=== PATIENT | female | born 1990 | race Caucasian/White ===

== ENCOUNTER 2019-05-14 07:52 | Emergency (ER) | payer SELFPAY ==
[2019-05-14 07:57] VITALS: BP 117/81; PULSE 82; RESP 16; TEMP 36.9; O2SAT 98; BMI 22.6
--- NOTE | 2019-05-14 07:58 | ED_ITS ---
HPI - Chest Pain General: Chief Complaint: General Medical Stated Complaint: left breast pain Time Seen by Provider: 05/14/19 07:58 Source: patient Mode of arrival: ambulatory Limitations: no limitations History of Present Illness: HPI narrative: Patient is a 28-year-old female who presents to ED today with complaints of left breast pain over the past few days; patient states she is breast-feeding her 1-1/2-year-old child; she has not noticed any warmth or redness to the breast; feels like it is firm to the lateral aspect complaint: other (Left breast pain) Onset (ago): day(s) Timing of current episode: constant Prior episodes: No Onset: during rest Pain location: left chest Pain radiation: none Severity: moderate Relieving factors: nothing Exacerbating factors: palpation and movement Associated symptoms: Reports no associated symptoms; Deny fever(s), nausea, palpitations, syncope or vomiting Review of Systems Const: Denies: fever, chills, body aches or fatigue Card: Denies: palpitations, irregular heart rhythm, edema, lightheadedness, syncope, pre-syncope, shortness of breath on exertion, shortness of breath when lying down or leg pain with exertion GI: Denies: nausea or vomiting Skin/Breast: Reports: other (Left breast pain) PFS ED PFSH: Statuses (acute, chronic, etc) shown below reflect problem list status as previously entered and may not be historically accurate Social History Smoking and tobacco status: never smoked Physical Exam Const: COMMON NORMALS: no apparent distress, average body habitus, oriented x3, no limitations, healthy appearing, alert and well nourished Chest: OTHER: TTP and firmness noted to L lateral breast; no nipple discharge; no redness/warmth to overlying tissue Neuro: COMMON NORMALS: oriented x3 SENSORIUM/ORIENTATION: Yes alert Course Vital Signs: Vital signs: Vital Signs Temperature 98.4 F 05/14/19 07:57 Pulse Rate 82 05/14/19 07:57 Respiratory Rate 16 05/14/19 07:57 Blood Pressure 117/81 05/14/19 07:57 Pulse Oximetry 98 05/14/19 07:57 MDM - Chest Pain Imaging Data^: US: Radiologist's impression: [address] [address] Ultrasound Report Signed Patient: Elke Anna Unit #: [id number] : 1990 Age/Sex: 28 / F ADM Date: 05/14/19 Loc: ER Room/Bed: Attending Dr: Ordering Provider/Ordering MD: Marya Marcano Date of Service: 05/14/19 Procedure(s): US breast LT limited* [id number] Accession Number(s): [id number] Report Number: [id number] WS: [id number] ULTRASOUND LEFT BREAST HISTORY: pain/swelling, 28-year-old with history of breast-feeding and pain. COMPARISON: None available. TECHNIQUE: 2-D and Doppler. Ultrasound is directed over the LEFT breast in the area of concern. There is soft tissue thickening and some increased vascularity surrounding the soft tissues behind the nipple. The ducts are dilated and contain echogenic debris. There is a tubular elongated structure measuring 2.0 x 0.6 cm at 9:00, 2 cm from the nipple. No increased vascularity. This does appear to be inspissated material within the duct. There are several additional similar structures. FOLLOW-UP: See Report 1. Findings are consistent with mastitis and marked duct ectasia. Inspissated material within the ducts. No abscess at this time. 2. No additional follow-up is necessary unless the findings do not improve. If mastitis persists or abscess is suspected follow-up can be performed at that time. US/US breast LT limited* [id number] IMPRESSION: BI-RADS: 2-Benign Dictated By: Barbara Boyd DO Signed By: Barbara Boyd DO Signed Date/Time: 05/14/19938 DD/ 2 Discharge Plan Discharge Patient Disposition: Home, Self-Care Clinical Impression: Mastitis without abscess Condition: Stable Prescriptions: New Keflex 500 mg capsule 500 mg PO Q6H 10 Days Qty: 40 RF: 0 No Action Multiple Vitamins Tablet 1 tab PO DAILY RF: 0 Mirena 20 mcg/24 hours (5 yrs) 52 mg Intrauterine Device See Rx Instructions .ROUTE .COMPLEX RF: 0 Referrals: Irvin Washburn MD [Primary Care Provider] - Wendy Purcell DO [Family Provider] - Discharge Diet: Usual diet Discharge Activity: continue ; warm compresses to breast Activity Restrictions/Additional Instructions: You need to follow up with primary care next week for continued pain. Coding Level of Care Code ED Electrical Systems Engineer for Ahmet Cerna
--- NOTE | 2019-05-14 08:09 | US_ITS ---
WS: [id number] ULTRASOUND LEFT BREAST HISTORY: pain/swelling, 28-year-old with history of breast-feeding and pain. COMPARISON: None available. TECHNIQUE: 2-D and Doppler. Ultrasound is directed over the LEFT breast in the area of concern. There is soft tissue thickening a nd some increased vascularity surrounding the soft tissues behind the nipple. The ducts are dilated a nd contain echogenic debris. There is a tubular elongated structure measuring 2.0 x 0.6 cm at 9:00, 2 cm from the nipple. No increased vascularity. This does appear to be inspissated material within the duct. There are several additional similar structures. FOLLOW-UP: See Report 1. Findings are consistent with mastitis and marked duct ectasia. Inspissated material within the du cts. No abscess at this time. 2. No additional follow-up is necessary unless the findings do not improve. If mastitis persists or abscess is suspected follow-up can be performed at that time. US/US breast LT limited* [id number] IMPRESSION: BI-RADS: 2-Benign
--- NOTE | 2019-05-14 08:15 | PC.NURSE ---
pt c/o tenderness to left breast that worsens with palpation/movement. Breast free of abnormal markings or erythema. pt denies lump/mass.
[2019-05-14 10:00] VITALS: BP 103/78; PULSE 92; O2SAT 98
== END 2019-05-14 10:00 | disposition home or self-care (01) ==
PROVIDERS: Emergency Provider Physician Assistant; Family Provider Family Medicine; PCP Family Medicine
DX: N61.0 Mastitis without abscess (principal)
CPT/HCPCS: 76642; 99281; 99283

== ENCOUNTER → 2019-09-04 14:53 | Outpatient (BNVA) | payer OTHER, SELFPAY | PROVIDERS: Family Provider Family Medicine; PCP Family Medicine; Visit Provider Orthopaedic Surgery | DX: M94.269 Chondromalacia, unspecified knee (principal) | CPT/HCPCS: 73565 ==

== ENCOUNTER → 2020-09-09 10:06 | Outpatient (BNVA) | payer OTHER, SELFPAY | PROVIDERS: Family Provider Family Medicine; PCP Family Medicine; Visit Provider Registered Nurse Neonatal Intensive Care | DX: J02.9 Acute pharyngitis, unspecified (principal); J30.2 Other seasonal allergic rhinitis; Z68.26 Body mass index [BMI] 26.0-26.9, adult | CPT/HCPCS: 87071; 87880 ==

== ENCOUNTER 2020-11-04 09:07 | Outpatient (CLI) | payer OTHER, SELFPAY ==
--- NOTE | 2020-11-04 09:14 | MM_ITS ---
WS: [id number] BILATERAL DIGITAL SCREENING MAMMOGRAPHY WITH CAD CLINICAL INFORMATION: SCREENING;FAM HX OF BREAST CA (MOTHER) HISTORY: Screening mammogram. Left breast lump. Family history of breast cancer. COMPARISON: None. TECHNIQUE: Bilateral CC and MLO views. FINDINGS: The breasts are composed of heterogeneous fibroglandular density tissue, which can limit the detectio n of small underlying mass lesions. Punctate and clustered calcifications. A few punctate calcificati ons left breast. Palpable marker upper outer left breast. Partially obscured ovoid nodular density de ep to the palpable marker best seen on the MLO view measuring 9 mm. Recommend further evaluation with diagnostic mammography and ultrasound. Right breast is unremarkable. MM/[place] [id number] IMPRESSION: BI-RADS: 0-Incomplete: Need additional imaging evaluation FOLLOW UP: Need Additional Imaging Palpable nodule left breast. Recommend further evaluation with left diagnostic mammography and ultrasound.
== END 2020-11-04 09:08 | disposition home or self-care (01) ==
LOC: RADSHAW 09:12
PROVIDERS: Family Provider Family Medicine; PCP Nurse Practitioner; Visit Provider Nurse Practitioner
DX: Z12.31 Encounter for screening mammogram for malignant neoplasm of breast (principal)
CPT/HCPCS: 77067

== ENCOUNTER → 2020-11-05 17:56 | Outpatient (BNVA) | payer OTHER, SELFPAY | PROVIDERS: Family Provider Family Medicine; PCP Nurse Practitioner; Visit Provider Nurse Practitioner Family | DX: S99.912A Unspecified injury of left ankle, initial encounter (principal); W10.9XXA Fall (on) (from) unspecified stairs and steps, initial encounter | CPT/HCPCS: 73610 ==

== ENCOUNTER 2021-01-05 13:46 | Outpatient (CLI) | payer OTHER, SELFPAY ==
--- NOTE | 2021-01-05 14:15 | US_ITS ---
WS: [id number] LEFT DIGITAL MAMMOGRAPHY WITH CAD CLINICAL INFORMATION: ABNORMAL MAMMOGRAM COMPARISON: November 04, 2020 TECHNIQUE: 4 views of the left breast were obtained. FINDINGS: The left breast is composed of heterogeneous fibroglandular density tissue, which can limit the detec tion of small underlying mass lesions. Punctate calcifications. Dense nodular breast tissue left [address] st similar in appearance to previous. Ultrasound is pending. ULTRASOUND BREAST LEFT TECHNIQUE: Ultrasound left breast focused area of concern. CLINICAL INFORMATION: ABNORMAL MAMMOGRAM FINDINGS: Ultrasound left breast at the 1:00 position. Ovoid lobulated nodule measuring 6.0 x 5.4 x 8.6 mm. In a patient this age this most likely represents fibroadenoma but indeterminant and recommend further e valuation with ultrasound-guided biopsy. Incidental subcutaneous lymph node measuring 11 x 10 mm in the area of marker US/US breast LT limited* [id number] IMPRESSION: BI-RADS: 4-Suspicious Finding-Biopsy Should Be Considered FOLLOW UP: US Guided Biopsy Recommended RECOMMEND FURTHER EVALUATION LEFT BREAST NODULE WITH ULTRASOUND-GUIDED BIOPSY.
== END 2021-01-05 13:47 | disposition home or self-care (01) ==
PROVIDERS: PCP Nurse Practitioner; Visit Provider Nurse Practitioner
DX: R92.8 Other abnormal and inconclusive findings on diagnostic imaging of breast (principal); N63.21 Unspecified lump in the left breast, upper outer quadrant
CPT/HCPCS: 76642; 77065

== ENCOUNTER 2021-01-21 07:59 | Outpatient (CLI) | payer OTHER, SELFPAY ==
--- NOTE | 2021-01-21 08:09 | US_ITS ---
WS: [id number] ULTRASOUND-GUIDED LEFT BREAST BIOPSY CLINICAL INFORMATION: nodule left breast COMPARISON: None. FINDINGS: The procedure including risks, benefits, and complications were discussed with the patient who agreed to proceed. Using sterile technique patient was prepped and draped in the usual sterile fashion. Aft er 1% lidocaine utilizing real-time ultrasound guidance 5 14-gauge cores were obtained of the left br east lesion at the 1 o'clock position. Subsequently a titanium clip was placed in the biopsy cavity. No immediate complications. Pathology demonstrates A. Breast, left 1 o'clock, 1 cm from nipple, ultrasound-guided biopsy: -Fibroadenoma. -No malignancy identified. US/[place] [id number] IMPRESSION: 1. Uncomplicated ultrasound-guided left breast biopsy. 2. The pathology demonstrates fibroadenoma. No malignancy identified. 3. Recommend 6 month follow-up left breast ultrasound to confirm stability BI-RADS: 2-Benign FOLLOW UP: 6 Month Follow-up
== END 2021-01-21 08:00 | disposition home or self-care (01) ==
LOC: RAD 08:02
PROVIDERS: PCP Nurse Practitioner; Visit Provider Nurse Practitioner
DX: N63.21 Unspecified lump in the left breast, upper outer quadrant (principal); D24.2 Benign neoplasm of left breast
CPT/HCPCS: 19083; 88305

== ENCOUNTER 2022-03-27 15:03 | Outpatient (CLI) | payer OTHER, SELFPAY ==
--- NOTE | 2022-03-27 15:15 | USCV_ITS ---
Elke Anna Age: 31 Gender: F : 1990 Exam Date: 03/27/2022 15:29 Ordering Phys: EAMON CARBAJAL PA-C Technologist: Exam Location: [facility] [place]ication: rt leg pain swelling post rt knee surg PROCEDURES: Venous duplex imaging was performed in only the Right lower extremity. The following venous structures were evaluated: common femoral vein, profunda vein, proximal portion of the greater saphenous vein, superficial femoral vein, and the popliteal vein. In addition, the posterior tibial and peroneal trunk were evaluated. There is a large complex bakers cyst in rt popfossa CONCLUSIONS No evidence of right lower extremity DVT. Complex right popliteal cyst measuring 6.2 x 2.5 x 4.0cm Jd Zamora MD (Electronically Signed) Final Date: 27 March 2022 17:38 S
== END 2022-03-27 15:04 | disposition home or self-care (01) ==
PROVIDERS: PCP Nurse Practitioner; Visit Provider Internal Medicine
DX: M79.661 Pain in right lower leg (principal); M79.89 Other specified soft tissue disorders; M71.21 Synovial cyst of popliteal space [Baker], right knee
CPT/HCPCS: 93971

== ENCOUNTER → 2022-10-10 13:44 | Outpatient (BNVA) | payer OTHER, SELFPAY | PROVIDERS: PCP Nurse Practitioner; Referring Provider Nurse Practitioner; Visit Provider Nurse Practitioner Family | DX: L30.9 Dermatitis, unspecified (principal); L81.4 Other melanin hyperpigmentation; L57.8 Other skin changes due to chronic exposure to nonionizing radiation | CPT/HCPCS: 99204 ==

== ENCOUNTER 2022-11-21 13:32 | Emergency (ER) | payer OTHER, SELFPAY ==
[2022-11-21 13:37] VITALS: BP 122/75; PULSE 88; RESP 16; TEMP 36.7; O2SAT 96; BMI 25.8
--- NOTE | 2022-11-21 14:41 | USCV_ITS ---
Elke Anna Age: 32 Gender: F : 1990 Exam Date: 11/21/2022 15:04 Ordering Phys: Richard Trujillo DO Technologist: CT Exam Location: [facility] – [place] Indication: rt knee swelling PROCEDURES: Venous duplex imaging was performed in only the right lower extremity. The following venous structures were evaluated: common femoral vein, profunda vein, proximal portion of the greater saphenous vein, superficial femoral vein, and the popliteal vein. In addition, the posterior tibial and peroneal trunk were evaluated. On the right side, the common femoral, superficial femoral, profunda femoral, popliteal, posterior tibial, greater saphenous veins and the peroneal trunk were identified and interrogated in the standard fashion. These veins were found to be easily compressible with spontaneous blood flow. No evidence of insufficiency or thrombus noted. FINDINGS: no dvt, post sx hematoma noted in upper calf posteriorly, rt knee sx 3 weeks ago CONCLUSIONS No evidence of right lower extremity DVT. Postop hematoma upper calf posteriorly 3.2 x 2.5cm Jd Zamora MD (Electronically Signed) Final Date: 21 November 2022 16:33 S
--- NOTE | 2022-11-21 14:42 | ED_ITS ---
HPI - Extremity Problem General: Chief complaint: Extremity Injury, Lower Stated complaint: right leg pain, pt fears bloodclot Time Seen by Provider: 11/21/22 14:29 History of Present Illness: Patient noticed right calf swelling since Sunday and a bruise since Sunday. Gravities pull is resulted at the ankle. Calf is swollen and tender to palpate. Patient's approximately 6 weeks out from knee surgery. Patient's worry about a DVT. Patient is not on any type of anticoagulation and is on control pills. Review of Systems General: Reports: 10 or more systems reviewed and unremarkable except in HPI and below PFSH ED PFSH: Medical History No pertinent past medical history neghx: htn, dm,thyroid,dvt/pe PCP: marjorie leos Surgical History (~2006) surgical EAB H/O breast biopsy Left breast-- benign possible fibroadenoma H/O eye surgery (~2014) H/O knee surgery 03/2021, 05/2021, 11/2021, 02/2022, 08/2022 H/O wisdom tooth extraction Family History Mother Breast cancer dx'd around age 50 Denies family history of Colon cancer Ovarian cancer Diabetes Heart disease Hyperlipidemia Hypertension Uterine cancer Thyroid disease Stroke Physical Exam Const: COMMON NORMALS: no acute distress, average body habitus, patient oriented x3, no limitations, healthy appearing, alert and well nourished HENMT: COMMON NORMALS: normocephalic, atraumatic, hearing grossly normal bilaterally, external ears normal, Normal external nose present and moist oral mucous membranes HEAD & SCALP: normocephalic and atraumatic NOSE: Normal external nose present EXTERNAL EAR: Yes external ears normal Neck/C-Spine: COMMON NORMALS: full ROM, no lymphadenopathy, supple, no meningeal signs, no JVD and Thyroid normal THYROID: Thyroid normal Chest: COMMONS NORMALS: normal inspection of the chest and normal palpation of entire chest wall Resp: COMMON NORMALS: normal respiratory effort, No retractions, No use of accessory muscles and clear to auscultation bilaterally AUSCULTATION: clear to auscultation bilaterally Cardio: COMMON NORMALS: no JVD, regular rate, regular rhythm, S1 normal heart sound present, S2 normal heart sound present, No gallops present (Cardio), No clicks present (Cardio), No murmurs present (Cardio) and No rub (Cardio) RATE: regular rate RHYTHM: regular rhythm HEART SOUNDS: S1 normal heart sound present and S2 normal heart sound present GI: COMMON NORMALS: Normal to inspection, nondistended, normoactive bowel sounds present, Soft to palpation, non-tender, No hepatosplenomegaly present and no masses PALPATION: Yes Soft to palpation and Yes No hepatosplenomegaly present Extremity: NARRATIVE EXTREMITY EXAM: Right leg calf swollen tender to palpate bruised from upper calf down to ankle. No erythema or streaking noted. Neuro: COMMON NORMALS: patient oriented x3 SENSORIUM/ORIENTATION: Yes alert MENINGEAL SIGNS: Yes no meningeal signs Course Vital Signs: Vital signs: Vital Signs Temperature 98.1 F 11/21/22 13:37 Pulse Rate 88 11/21/22 13:37 Respiratory Rate 16 11/21/22 13:37 Blood Pressure 122/75 11/21/22 13:37 Pulse Oximetry 96 11/21/22 13:37 Oxygen Delivery Me thod Room Air 11/21/22 13:37 MDM - Extremity (Nontraumatic) Medical Decision Making Presents to the ER with bruise on right lower extremity and swelling and tenderness to palpation. Patient is postop right knee surgery. Patient had ultrasound of his right lower extremity which showed no DVT but did show a hematoma in the posterior calf region. This was discussed and explained to the patient in detail patient be discharged home. Differential Diagnosis Likely deep vein thrombosis of lower extremity; Unlikely herpes zoster, gout, cellulitis, superficial thrombophlebitis, deep venous thrombosis of upper extremity or lower extremity edema Medical Records I reviewed the patient's medical records. Lab Data I reviewed the patient's lab results. Discharge Plan Discharge Patient Disposition: Home Clinical Impression: Hematoma, Localized swelling of lower extremity Condition: Stable Prescriptions: No Action levonorgestrel-ethinyl estrad [Levora-28] 0.15-0.03 mg tablet 1 tab PO DAILY Qty: 84 0RF Multiple Vitamins Tablet 1 tab PO DAILY Discharge Orders: Discharge ED (Routine); Ordered 11/21/22 Ordered By: Richard Trujillo Referrals: Marjorie Loes FNP [Primary Care Provider] - 1 week Patient Instructions: Hematoma (ED) Activity Restrictions/Additional Instructions: Follow-up with your PCP in approximately 7 to 10 days as needed. Coding Level of Care Code ED Melting Operator for Ahmet Cerna
[2022-11-21 16:48] VITALS: BP 120/78; PULSE 90; O2SAT 98
== END 2022-11-21 16:45 | disposition home or self-care (01) ==
PROVIDERS: Emergency Provider Emergency Medicine; PCP Nurse Practitioner
DX: S80.11XA Contusion of right lower leg, initial encounter (principal); M79.89 Other specified soft tissue disorders; X58.XXXA Exposure to other specified factors, initial encounter
CPT/HCPCS: 93971; 99284

== ENCOUNTER 2023-08-08 13:12 | Emergency (ER) | payer BC, SELFPAY ==
[2023-08-08 13:28] VITALS: BP 152/80; PULSE 67; RESP 18; TEMP 36.7; O2SAT 99; BMI 28.2
--- NOTE | 2023-08-08 13:43 | ED_ITS ---
HPI - Female Genitourinary 2 General: Chief complaint: Urogenital-Female Stated complaint: cramps, frequent urination Time Seen by Provider: 08/08/23 13:43 History of Present Illness: 32-year-old female comes in today with b reast tenderness, abnormal uterine bleeding, nausea. Patient thought she might be but had a negative test at home. Labs normal menstrual cycle was 2 weeks ago. Patient reports today she started having some intermittent spotting. Patient denies any chronic medical problems but some back pain and knee pain due to prior service. Patient's history is 3 para 1. Patient takes no routine medications. Patient reports that her and her are trying to get . Review of Systems 2 General: Reports: 10 or more systems reviewed and unremarkable except in HPI and below : Reports: vaginal bleeding PFSH ED 2 PFSH: Medical History No pertinent past medical history neghx: htn, dm,thyroid,dvt/pe PCP: marjorie leos Surgical History (~2006) surgical EAB H/O breast biopsy Left breast-- benign possible fibroadenoma H/O eye surgery (~2014) H/O knee surgery 03/2021, 05/2021, 11/2021, 02/2022, 08/2022 H/O wisdom tooth extraction Family History Mother Breast cancer dx'd around age 50 Denies family history of Colon cancer Ovarian cancer Diabetes Heart disease Hyperlipidemia Hypertension Uterine cancer Thyroid disease Stroke Physical Exam 2 Const: COMMON NORMALS: alert HENMT: COMMON NORMALS: normocephalic HEAD & SCALP: normocephalic Neck/C-Spine: COMMON NORMALS: full ROM Chest: COMMONS NORMALS: normal inspection of the chest Resp: COMMON NORMALS: normal respiratory effort and clear to auscultation bilaterally AUSCULTATION: clear to auscultation bilaterally Cardio: COMMON NORMALS: regular rate RATE: regular rate GI: COMMON NORMALS: Soft to palpation PALPATION: Yes Soft to palpation Back/Pelvis: COMMON NORMALS: thoracic and lumbar spine normal to inspection Extremity: COMMON NORMALS: full ROM Neuro: SENSORIUM/ORIENTATION: Yes alert Psych: COMMON NORMALS: cooperative Skin: COMMON NORMALS: turgor normal GENERAL SKIN EXAM: turgor normal Course 2 Vital Signs: Vital signs: Vital Signs Temperature 98.0 F 08/08/23 13:28 Pulse Rate 67 08/08/23 13:28 Respiratory Rate 18 08/08/23 13:28 Blood Pressure 117/67 08/08/23 14:34 Pulse Oximetry 99 08/08/23 13:28 Oxygen Delivery Me thod Room Air 08/08/23 13:28 MDM - Female Medical Decision Making Patient comes in with pelvic fullness and some breast tenderness and abnormal uterine bleeding. On exam patient has some tenderness in the lower suprapubic abdomen. Vital signs are normal except for some mild elevation of blood pressure. Skin is warm and dry. Differential diagnosis includes , ovarian cyst, UTI, vaginitis. Urinalysis was unremarkable. CBC CMP were unremarkable. hCG was negative. Ultrasound of the pelvis noted a left ovarian cyst with good blood flow to the ovary. Reviewed exam with patient with recommendations for treatment and follow-up with WIRE ROPE SALES REPRESENTATIVE for ovarian cyst. Patient reported understanding and agreed to plan. Lab Data 08/08/23 13:48 08/08/23 13:48 Laboratory Results WBC 6.62 10^3/uL (3.29-11.43) 08/08/23 13:48 RBC 4.37 10^6/uL (3.85-5.65) 08/08/23 13:48 Hgb 13.30 g/dL (11.27-16.99) 08/08/23 13:48 Hct 39.0 % (36-47) 08/08/23 13:48 MCV 89.2 fl (85-98) 08/08/23 13:48 MCH 30.4 pg (27-33) 08/08/23 13:48 MCHC 34.1 g/dL (30-55) 08/08/23 13:48 RDW 11.8 % (12.1-15.1) L 08/08/23 13:48 Plt Count 247 10^3/cmm (157-399) 08/08/23 13:48 MPV 10.1 fL (7.4-10.4) 08/08/23 13:48 Neut % (Auto) 72.8 % 08/08/23 13:48 Lymph % (Auto) 18.9 % 08/08/23 13:48 [place] % (Auto) 5.9 % 08/08/23 13:48 Eos % (Auto) 1.7 % 08/08/23 13:48 Baso % (Auto) 0.5 % 08/08/23 13:48 Neut # (Auto) 4.83 10^3/uL (1.8-7.7) 08/08/23 13:48 Lymph # (Auto) 1.3 10^3/uL (0.8-4.8) 08/08/23 13:48 [place] # (Auto) 0.4 10^3/uL (0.2-0.9) 08/08/23 13:48 Eos # (Auto) 0.1 10^3/uL (0.0-0.8) 08/08/23 13:48 Baso # (Auto) 0.0 10^3/uL (0.0-0.1) 08/08/23 13:48 Nucleated RBC % (auto) 0 % 08/08/23 13:48 Nucleated RBCs # 0.0 /100WBC 08/08/23 13:48 Sodium 136 mmol/L (136-145) 08/08/23 13:48 Potassium 3.6 mmol/L (3.5-5.1) 08/08/23 13:48 Chloride 103 mmol/L (98-107) 08/08/23 13:48 Carbon Dioxide 22 mmol/L (22-29) 08/08/23 13:48 Anion Gap 14.6 (5-19) 08/08/23 13:48 BUN 8 mg/dL (6-20) 08/08/23 13:48 Creatinine 0.6 mg/dL (0.5-0.9) 08/08/23 13:48 GFR Calculation 115.1 mL/min (90-130) 08/08/23 13:48 Glucose 134 mg/dL (65-115) H 08/08/23 13:48 Calculated Osmolality 282 mOsm/kg (285-295) L 08/08/23 13:48 Calcium 9.3 mg/dL (8.5-10.5) 08/08/23 13:48 Total Bilirubin 0.3 mg/dL (0.15-1.2) 08/08/23 13:48 AST 23 U/L (0-32) 08/08/23 13:48 ALT 41 U/L (0-33) H 08/08/23 13:48 Alkaline Phosphatase 98 U/L (35-105) 08/08/23 13:48 Total Protein 7.4 g/dL (6.6-8.7) 08/08/23 13:48 Albumin 4.1 g/dL (3.5-5.2) 08/08/23 13:48 Globulin 3.3 g/dL (1.3-4.6) 08/08/23 13:48 Lipase 39 U/L (13-60) 08/08/23 13:48 HCG, Qual Negative (Negative) 08/08/23 13:48 Urine Color Yellow (Yellow) 08/08/23 13:49 Urine Appearance Sl hazy (CLEAR) A 08/08/23 13:49 Urine pH 5 (5-7) 08/08/23 13:49 Ur Specific [place] 1.020 (1.005-1.030) 08/08/23 13:49 Urine Protein Neg (Negative) 08/08/23 13:49 Urine Glucose (UA) Norm (Normal) 08/08/23 13:49 Urine Ketones Negative (Negative) 08/08/23 13:49 Urine Blood 3+ (Negative) H 08/08/23 13:49 Urine Nitrate Negative (Negative) 08/08/23 13:49 Urine Bilirubin Neg (Negative) 08/08/23 13:49 Urine Urobilinogen Norm mg/dL (Negative) 08/08/23 13:49 Ur Leukocyte Esterase Negative (Negative) 08/08/23 13:49 Urine RBC 10-15 /hpf (0-2) H 08/08/23 13:49 Urine WBC 0-4 /hpf (0-5) H 08/08/23 13:49 Ur Squamous Epith Cells 5-10 /hpf (0-5) H 08/08/23 13:49 Amorphous Sediment Not Reportable 08/08/23 13:49 Urine Bacteria 1+ /hpf (NONE) H 08/08/23 13:49 Urine Mucus Trace /hpf 08/08/23 13:49 XR interpretation done by ED provider, pending radiology final review Discharge Plan Discharge Patient Disposition: Home Clinical Impression: Ovarian cyst Qualifiers: Laterality: left Qualified Code(s): N83.202 - Unspecified ovarian cyst, left side Condition: Stable Prescriptions: No Action 28 mg iron- 800 mcg Tablet 1 tab PO DAILY Discharge Orders: Discharge ED (Routine); Ordered 08/08/23 Ordered By: Tyrone Ware Referrals: Marjorie Leos, CHIMNEY MECHANIC [Primary Care Provider] - Discharge Diet: Usual diet Discharge Activity: Increase activity as tolerated Patient Instructions: Ovarian Cyst (ED) Activity Restrictions/Additional Instructions: Home and rest. Drink plenty water and fluids. Use acetaminophen or ibuprofen for pain. Follow-up with primary care or WIRE ROPE SALES REPRESENTATIVE for further evaluation of cyst. Return to ER for new concerns. Coding Level of Care Code ED Tactical Debriefer Officer for Ahmet Cerna
[2023-08-08 14:00] LABS: Basophils % 0.5 %; Eosinophils # 0.1 10^3/uL (0.0-0.8); Eosinophils % 1.7 %; Lymphocytes # 1.3 10^3/uL (0.8-4.8); Lymphocytes % 18.9 %; Mean Corpuscular HGB Conc 34.1 g/dL (30-55); Mean Corpuscular Hemoglobin 30.4 pg (27-33); Mean Corpuscular Volume 89.2 fl (85-98); Mean Platelet Volume 10.1 fL (7.4-10.4); Monocytes # 0.4 10^3/uL (0.2-0.9); Monocytes % 5.9 %; Neutrophils # 4.83 10^3/uL (1.8-7.7); Neutrophils % 72.8 %; Nucleated Red Blood Cells % 0 %; Platelet Count 247 10^3/cmm (157-399); Red Blood Count 4.37 10^6/uL (3.85-5.65); Red Cell Distribution Width 11.8 % (12.1-15.1); White Blood Count 6.62 10^3/uL (3.29-11.43)
[2023-08-08 14:14] LABS: Alanine Aminotransferase 41 U/L (0-33); Albumin Level 4.1 g/dL (3.5-5.2); Alkaline Phosphatase 98 U/L (35-105); Anion Gap 14.6 (5-19); Aspartate Amino Transferase 23 U/L (0-32); Blood Urea Nitrogen 8 mg/dL (6-20); Calcium 9.3 mg/dL (8.5-10.5); Carbon Dioxide 22 mmol/L (22-29); Chloride 103 mmol/L (98-107); Creatinine Clr Calc Pharmacy 141.7548; Globulin 3.3 g/dL (1.3-4.6); Glomerular Filtration Rate 115.1 mL/min (90-130); Glucose 134 mg/dL (65-115); Lipase 39 U/L (13-60); Osmolality Calculated 282 mOsm/kg (285-295); Potassium 3.6 mmol/L (3.5-5.1); Sodium 136 mmol/L (136-145); Total Bilirubin 0.3 mg/dL (0.15-1.2); Total Protein 7.4 g/dL (6.6-8.7)
[2023-08-08 14:18] LABS: HCG, Serum Qual Negative (Negative)
--- NOTE | 2023-08-08 14:19 | US_ITS ---
WS: [id number] US transvaginal [id number] HISTORY: pelvic pain, abnormal bleeding COMPARISON: 09/20/2018 Uterus: 7.7 cm x 4.9 cm x 4.1 cm. Normal size retroverted uterus. No fibroid or mass identified. Endometrium: 0.5 cm. Normal. Right ovary: 3.4 cm x 2.5 cm x 1.6 cm. Normal size and vascularity, no cystic or solid masses. Left ovary: 4.9 cm x 4.4 cm x 4.1 cm. Mildly enlarged ovary. There is a simple cyst measuring 3.4 x 3 .4 x 3.5 cm associated with the ovary. No solid mass. The adjacent ovary has normal vascularity. No free fluid in the cul-de-sac. IMPRESSION: 1. Normal endometrium. 2. Simple LEFT ovarian cyst, 3.4 x 3.4 x 3.5 cm.
[2023-08-08 14:34] VITALS: BP 117/67
[2023-08-08 14:39] LABS: Add Urine Microscopic? YES; Bilirubin Urine Neg (Negative); Blood Urine 3+ (Negative); Glucose Urine UA Norm (Normal); Ketones Urine Negative (Negative); Leukocyte Esterase Urine Negative (Negative); Nitrate Urine Negative (Negative); Protein Urine Neg (Negative); Urine Appearance SL Hazy (CLEAR); Urine Color Yellow (Yellow); Urobilinogen Urine Norm (Negative); pH Urine 5 (5-7)
[2023-08-08 14:40] LABS: Bacteria Urine 1+ /hpf; Mucus Urine TRACE /hpf; WBC Urine 0-4 /hpf (0-5)
[2023-08-08 14:41] LABS: Add Urine Culture? Yes
--- NOTE | 2023-08-08 15:07 | PC.NURSE ---
pt in ultrasound
[2023-08-08 15:46] VITALS: BP 114/73; PULSE 72; RESP 16; O2SAT 96
== END 2023-08-08 15:47 | disposition home or self-care (01) ==
PROVIDERS: Emergency Medicine; Emergency Provider Nurse Practitioner Family; PCP Nurse Practitioner
DX: N83.202 Unspecified ovarian cyst, left side (principal)
CPT/HCPCS: 76830; 80053; 81001; 83690; 84703; 85025; 87086; 99284

== ENCOUNTER 2024-07-22 12:32 | Inpatient (IN) | payer BC, SELFPAY ==
[2024-07-22] VITALS (37 sets, daily range): BP systolic 113–138; BP diastolic 54–94; PULSE 65–82; RESP 14–18; TEMP 36.6–36.8; O2SAT 96–98; BMI 33.2
[2024-07-22 12:32] LABS: Basophils % 0.3 %; Eosinophils # 0.2 10^3/uL (0.0-0.8); Eosinophils % 1.6 %; Hematocrit 38.8 % (36-47); Lymphocytes % 10.1 %; Mean Corpuscular HGB Conc 34.3 g/dL (30-55); Mean Corpuscular Hemoglobin 30.3 pg (27-33); Mean Corpuscular Volume 88.4 fl (85-98); Monocytes # 0.7 10^3/uL (0.2-0.9); Monocytes % 7.2 %; Neutrophils # 8.21 10^3/uL (1.8-7.7); Neutrophils % 80.2 %; Nucleated Red Blood Cells % 0 %; Platelet Count 205 10^3/cmm (157-399); Red Blood Count 4.39 10^6/uL (3.85-5.65); Red Cell Distribution Width 13.3 % (12.1-15.1); White Blood Count 10.23 10^3/uL (3.29-11.43)
[2024-07-22] MEDS: sodium chloride 0.9% 1,000 ML 999 ML IV (12:35)
[2024-07-22] MEDS: ROPivacaine syringe 100 MG/50 ML SYRINGE 10 MG EPIDURAL (13:21)
--- NOTE | 2024-07-22 13:27 | ANES.PREANE2 ---
Pre-Anesthetic Assessment Height/Weight: Height 5 ft 6 in Pulse BP Pulse Ox 68 113/64 98 07/22/24 13:25 07/22/24 13:25 07/22/24 13:23 Preop Diagnosis: IUP Was Beta Baljit taken within 24 hours: N/A Was Clonidine taken within 24 hours: N/A Social No alcohol and No tobacco Exam alert, oriented x 3, clear to auscultation bilaterally and regular rate & rhythm Airway Submandibular: within normal limits Cervical ROM: within normal limits Mallampati: Class II Dentition: full Anesthetic Plan ASA status: 2 Anesthesia: Regional (specify below) Other: G2, P1 here for active labor No issues during Denies any pulmonary or cardiac issues Labs reviewed and acceptable for procedure Patient consents for epidural at this time Medications/Allergies Home Medications ?Medication ?Instructions ?Recorded ?Confirmed ?Last Taken ?Type vit no.95-ferrous 1 tab PO DAILY 08/08/23 08/08/23 Unknown History fumarate 28 mg-folic acid 800 mcg tablet () Allergies Allergy/AdvReac Type Severity Reaction Status Date / Time Penicillins Allergy ADR-Diarrhe Verified 08/08/23 13:31 a hydrocodone AdvReac Mild ADR-Dizzine Verified 08/08/23 13:31 ss oxycodone AdvReac Mild ADR-Dizzine Verified 08/08/23 13:31 ss Current Medications Generic Name Dose Route Start Last Admin Trade Name Freq PRN Reason Stop Dose Admin Sodium Chloride 1,000 mls @ 999 mls/hr 07/22/24 12:20 07/22/24 12:35 Sodium Chloride 0.9% IV 999 mls/hr .Q1H1M PRN Administration Per L&D Rescitation Protocol Ropivacaine 100 mg in 50 mls @ 10 mls/hr 07/22/24 12:30 07/22/24 13:21 Naropin Syringe EPIDURAL 10 mls/hr .Q5H SHAWN Administration PFSH Anesthesia Medical History No pertinent past medical history neghx: htn, dm,thyroid,dvt/pe PCP: [facility] Surgical History (~2006) surgical EAB H/O breast biopsy Left breast-- benign possible fibroadenoma H/O eye surgery (~2014) H/O knee surgery 03/2021, 05/2021, 11/2021, 02/2022, 08/2022 H/O wisdom tooth extraction Family History Mother Breast cancer dx'd around age 50 Denies family history of Colon cancer Ovarian cancer Diabetes Heart disease Hyperlipidemia Hypertension Uterine cancer Thyroid disease Stroke Data Anesthesia 07/22/24 12:20 Short CBC 07/22/24 Range/Units 12:20 WBC 10.23 (3.29-11.43) 10^3/uL Hgb 13.30 (11.27-16.99) g/dL Hct 38.8 (36-47) % MCV 88.4 (85-98) fl Plt Count 205 (157-399) 10^3/cmm Neut % (Auto) 80.2 % Neut # (Auto) 8.21 H (1.8-7.7) 10^3/uL Blood Bank 07/22/24 12:20 Blood Type A Positive Rho(D) Type Rh positive Antibody Screen Negative Cardiac Studies: No Data to Display
--- NOTE | 2024-07-22 13:28 | P.ANES_ITS ---
Anesthesia Procedures Procedure/Date: 07/22/24 Epidural: Time Out Performed: Yes Consents Signed: Procedure Consent Consent: requested by attending/covering physician and from patient Lumbar Level: L3-L4 Epidural position: sitting Epidural procedure: sterile prep of area, 1% lidocaine to numb the area, 18 g needle, negative for paresthesia p assed, neg for paresthesia, test dose given, 1.5% xylocaine 1:200k epi, 0.2% Ropivacaine bolus ml, placed PCEA, no systemic response, sterile dressing applied and L.U.D. no apparent complications Additional Comments: CSE performed. Following [id number] a 27-gauge spinal needle was introduced to the intrathecal space. 1 cc of 0.25% bupivacaine was injected into the intrathecal space. Following this, epidural catheter was threaded into the epidural space. Ropivacaine 0.2% was set at 10 mL/h
[2024-07-22] MEDS: dextrose 5%-lactated ringers 1,000 ML 125 ML IV (13:30)
[2024-07-22] MEDS: lactated ringers 1,000 ML 999 ML IV (13:44)
[2024-07-22] MEDS: oxytocin 30 UNIT/500 ML BAG 600 UNIT IV (14:24)
[2024-07-22] MEDS: benzocaine-menthol 78 gm Canister 1 SPRAY TOPICAL (16:51)
--- NOTE | 2024-07-22 17:10 | P.HP_ITS ---
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 The patient started teddy soon after her OB visit earlier today. Patient had progressed from 3 cm to 5 cm. Patient has had no complications during . BX was negative. Present Details : 4 Para: 1 Labs Rubella: Immune RPR: Negative GBS: Negative Review of Systems 2 General: Reports: 10 or more systems reviewed and unremarkable except in HPI and below Medications/Allergies Home Medications ?Medication ?Instructions ?Recorded ?Confirmed ?Last Taken ?Type vit no.95-ferrous 1 tab PO DAILY 08/08/2302/20 Unknown History fumarate 28 mg-folic acid 800 mcg tablet () Allergies Allergy/AdvReac Type Severity Reaction Status Date / Time Penicillins Allergy ADR-Diarrhe Verified 08/08/23 13:31 a hydrocodone AdvReac Mild ADR-Dizzine Verified 08/08/23 13:31 ss oxycodone AdvReac Mild ADR-Dizzine Verified 08/08/23 13:31 ss 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: Medical History No pertinent past medical history neghx: htn, dm,thyroid,dvt/pe PCP: bre [facility] Surgical History (~2006) surgical EAB H/O breast biopsy Left breast-- benign possible fibroadenoma H/O eye surgery (~2014) H/O knee surgery 03/2021, 05/2021, 11/2021, 02/2022, 08/2022 H/O wisdom tooth extraction Family History Mother Breast cancer dx'd around age 50 Denies family history of Colon cancer Ovarian cancer Diabetes Heart disease Hyperlipidemia Hypertension Uterine cancer Thyroid disease Stroke History History History 2 2 Term 1 0 Miscarriages/Ectopic 1 Living Children 1 Vitals/I&O/Wt Last Vital Signs Pulse 73 07/22/24 16:40 Resp 15 07/22/24 16:38 BP 121/66 07/22/24 16:40 Pulse Ox 97 07/22/24 14:08 O2 Del Method Room Air 07/22/24 12:05 07/22/24 07/22/24 07/22/24 06:59 14:59 22:59 Intake Total 330 / 330 Output Total 250 / 250 Balance 80 / 80 Weight last 48 hrs Weight 93.44 kg Physical Exam 2 Const: COMMON NORMALS: average body habitus and patient oriented x3 Resp: COMMON NORMALS: normal respiratory effort and No retractions Cardio: COMMON NORMALS: no JVD, regular rate and regular rhythm Extremity: COMMON NORMALS: no clubbing, cyanosis or edema Neuro: COMMON NORMALS: moves all extremities, no focal motor deficits and no sensory deficits noted Psych: COMMON NORMALS: mental status grossly normal and cooperative Skin: COMMON NORMALS: no rashes or lesions noted Urinary Catheter Management: Cortez: Cath Placed During This Visit: yes, but has since been removed by the nurse Reason for Continuing Indwelling Catheter: Decision to DC Catheter Urinary Catheter Date of Insertion: 07/22/24 Urinary Catheter Time of Insertion: 13:55 Date Urinary Catheter Removed: 07/22/24 Time Urinary Catheter Discontinued: 14:10 Data 07/22/24 12:20 Results Labs OB ([facility]): 2 Blood Type A Positive 07/22/24 Antibody Screen Negative 07/22/24 Hct 38.8 % (36-47) 07/22/24 Hgb 13.30 g/dL (11.27-16.99) 07/22/24 Rho(D) Type Rh positive 07/22/24 Plt Count 205 10^3/cmm (157-399) 07/22/24 HCG, Qual Negative (Negative) 08/08/23 Micro Urine Specimen 08/08/23 A&P Assessment and plan (1) Term : The patient has progressed since exam earlier so patient will be admitted for labor. Proceed with routine labor management. (2) Request for sterilization: The patient desires tubal ligation. The patient had been consented prior to 30 days before delivery. We will consult women's health for tubal PDMP PDMP Reviewed: Not Reviewed Attestations 2 Medical Necessity Statement*: Patient admitted for labor. Anticipate 2 midnight stay. Coding Level of Care Code Acute Code for Chg Fwd Diagnoses Term Z34.90 Request for sterilization Z30.2
--- NOTE | 2024-07-22 17:17 | PM.DELIVERY ---
Delivery Note: Date of delivery: July 22, 2024 Pre-delivery diagnoses: Term intrauterine Post-delivery diagnoses: Same, viable infant male Procedure: Spontaneous vaginal delivery Delivering Physician: Dr. Alon Peterson Estimated blood loss (mL): 300 Pre-Delivery Course: Patient presented at 39 weeks in active labor. The patient had progressed to completion as expected. Delivery: Once patient was completely dilated she was placed into the normal lithotomy position. The patient started pushing with contractions. After several rounds of pushing 's head was delivered without difficulty followed by infant shoulders and body. Nuchal cord x 1 was noted. Infant was placed on mother's abdomen and after delay the cord was clamped and cut. Placenta was delivered soon after. Review of the perineum showed a second-degree perineal tear that extended up the introitus and labrum. This was repaired with a combination of 2-0 Vicryl and 2-0 chromic. Continued procedure the patient's bleeding was controlled. Post-Delivery Status: Stable History History History 2 Term 1 0 Miscarriages/Ectopic 1 Living Children 1 A&P Assessment and plan (1) Spontaneous vaginal delivery: Proceed with routine care. Consult for tubal ordered. PDMP PDMP Reviewed: Not Reviewed Coding Level of Care Code Acute Code for Chg Fwd Diagnoses Spontaneous vaginal delivery O80
[2024-07-22] MEDS: docusate sodium 100 mg Capsule PO (20:00)
[2024-07-22] MEDS: ibuprofen 800 mg tablet PO (20:00)
[2024-07-23 00:20] VITALS: BP 117/71; PULSE 70; RESP 16; TEMP 36.8
[2024-07-23 02:24] LABS: Hematocrit 34.7 % (36-47); Mean Corpuscular HGB Conc 33.7 g/dL (30-55); Mean Corpuscular Hemoglobin 30.1 pg (27-33); Mean Corpuscular Volume 89.2 fl (85-98); Mean Platelet Volume 10.9 fL (7.4-10.4); Platelet Count 183 10^3/cmm (157-399); Red Blood Count 3.89 10^6/uL (3.85-5.65); Red Cell Distribution Width 13.4 % (12.1-15.1); White Blood Count 10.91 10^3/uL (3.29-11.43)
[2024-07-23 06:22] VITALS: BP 119/71; PULSE 76; RESP 16; TEMP 37.1; O2SAT 97
[2024-07-23] MEDS: ibuprofen 800 mg tablet PO (08:00)
[2024-07-23] MEDS: docusate sodium 100 mg Capsule PO (08:00)
[2024-07-23] MEDS: PRENATAL VIT NO.130/IRON/FOLIC 1 EACH TABLET PO (08:00)
--- NOTE | 2024-07-23 08:26 | ANE.PACU2 ---
Inpatient post-anesthesia follow up: Airway intact: Yes Vital signs: Temperature 98.0 F Pulse Rate 78 Respiratory Rate 16 Blood Pressure 118/84 Pulse Oximetry 99 Oxygen Delivery Me thod Room Air Oxygen Flow Rate Fraction of Inspir ed Oxygen Hydration adequate: Yes Nausea and vomiting: No Pain level: 1 Mental status: Baseline Epidural Start/End: Epidural Start Date: 07/22/24 Epidural Start Time: 13:12 Epidural End Date: 07/22/24 Epidural End Time: 15:20
[2024-07-23 10:00] VITALS: BP 119/73; PULSE 76; RESP 16; TEMP 36.7; O2SAT 98
[2024-07-23] MEDS: acetaminophen 325 mg Tablet 650 MG PO (12:10)
--- NOTE | 2024-07-23 12:51 | P.DS_ITS ---
Discharge Providers SPORTS CARTOONIST Date of Admission: 07/22/24 12:32 Date of Discharge: 07/23/24 Attending Provider at Admission: Alon Peterson MD Attending Provider at Discharge: Alon Peterson MD Primary Care Provider: KATALINA Monte Diagnoses at Discharge Discharge Diagnosis (1) Spontaneous vaginal delivery: Status: Acute Reason for Visit Reason for Visit: Poss. SROM Hospital Course Hospital Course This is a 33-year-old G4, P2 that presented at 39 weeks with active labor. Patient had progressed to completion and delivered a viable infant male vaginally without any difficulty. Patient had no complications. Information Peripartum Data: Infant Delivery Method: Vaginal Laceration description: Perineal - 2nd Degree Episiotomy description: None complications: none Physical Exam Const: COMMON NORMALS: average body habitus and patient oriented x3 Neck/C-Spine: COMMON NORMALS: no JVD Resp: COMMON NORMALS: normal respiratory effort and No retractions Cardio: COMMON NORMALS: no JVD, regular rate and regular rhythm RATE: regular rate RHYTHM: regular rhythm GI: OTHER: Uterus firm and below umbilicus Extremity: COMMON NORMALS: no clubbing, cyanosis or edema Neuro: COMMON NORMALS: patient oriented x3, moves all extremities, no focal motor deficits and no sensory deficits noted Psych: COMMON NORMALS: mental status grossly normal and cooperative Skin: COMMON NORMALS: no rashes or lesions noted GENERAL SKIN EXAM: no rashes or lesions noted Urinary Catheter Management: Cortez: Cath Placed During This Visit: yes, but has since been removed by the nurse Reason for Continuing Indwelling Catheter: Decision to DC Catheter Urinary Catheter Date of Insertion: 07/22/24 Urinary Catheter Time of Insertion: 13:55 Date Urinary Catheter Removed: 07/22/24 Time Urinary Catheter Discontinued: 14:10 History History History 2 Term 1 0 Miscarriages/Ectopic 1 Living Children 1 Discharge Data Studies Completed and Pending Laboratory Results WBC 10.91 10^3/uL (3.29-11.43) 07/23/24 02:11 RBC 3.89 10^6/uL (3.85-5.65) 07/23/24 02:11 Hgb 11.70 g/dL (11.27-16.99) 07/23/24 02:11 Hct 34.7 % (36-47) L 07/23/24 02:11 MCV 89.2 fl (85-98) 07/23/24 02:11 MCH 30.1 pg (27-33) 07/23/24 02:11 MCHC 33.7 g/dL (30-55) 07/23/24 02:11 RDW 13.4 % (12.1-15.1) 07/23/24 02:11 Plt Count 183 10^3/cmm (157-399) 07/23/24 02:11 MPV 10.9 fL (7.4-10.4) H 07/23/24 02:11 Neut % (Auto) 80.2 % 07/22/24 12:20 Lymph % (Auto) 10.1 % 07/22/24 12:20 [place] % (Auto) 7.2 % 07/22/24 12:20 Eos % (Auto) 1.6 % 07/22/24 12:20 Baso % (Auto) 0.3 % 07/22/24 12:20 Neut # (Auto) 8.21 10^3/uL (1.8-7.7) H 07/22/24 12:20 Lymph # (Auto) 1.0 10^3/uL (0.8-4.8) 07/22/24 12:20 [place] # (Auto) 0.7 10^3/uL (0.2-0.9) 07/22/24 12:20 Eos # (Auto) 0.2 10^3/uL (0.0-0.8) 07/22/24 12:20 Baso # (Auto) 0.0 10^3/uL (0.0-0.1) 07/22/24 12:20 Nucleated RBC % (auto) 0 % 07/22/24 12:20 Nucleated RBCs # 0.0 /100WBC 07/22/24 12:20 Blood Type A Positive 07/22/24 12:20 Rho(D) Type Rh positive 07/22/24 12:20 Antibody Screen Negative 07/22/24 12:20 Vitals Last Vital Signs Temp 98.1 F 07/23/24 10:00 Pulse 76 07/23/24 10:00 Resp 16 07/23/24 10:00 BP 119/73 07/23/24 10:00 Pulse Ox 98 07/23/24 10:00 O2 Del Method Room Air 07/23/24 10:00 Results Labs OB ([facility]): Blood Type A Positive 07/22/24 Antibody Screen Negative 07/22/24 Hct 34.7 % (36-47) L 07/23/24 Hgb 11.70 g/dL (11.27-16.99) 07/23/24 Rho(D) Type Rh positive 07/22/24 Plt Count 183 10^3/cmm (157-399) 07/23/24 HCG, Qual Negative (Negative) 08/08/23 Micro Urine Specimen 08/08/23 Discharge Plan Discharge Patient Disposition: Home Condition: Stable Prescriptions: Continued PNV cmb#95-ferrous fumarate-FA [] 28 mg iron- 800 mcg Tablet 1 tab PO DAILY Discharge Orders: Discharge Order (Routine); Ordered 07/23/24 Ordered By: Alon Peterson Referrals: Alon Peterson MD [Physician] - 6 Weeks Yasir Farnsworth MD [Physician] - 6 Weeks (Tubal ligation consult) Discharge Diet: Usual diet Discharge Activity: Limit activity as instructed Patient Instructions: Depression (DC), Bleeding (DC), Preeclampsia and Eclampsia After Delivery (GEN), Hemorrhage (DC), OB Discharge Report, OB Food/Drug Interaction Guide, OB Care at Home, Opioid Safety, OB Vaginal Deliveries Discharge Attestations SPORTS CARTOONIST Time Spent in Discharge Care*: less than 30 min Coding Level of Care Code Acute Code for Chg Fwd Diagnoses Spontaneous vaginal delivery O80
[2024-07-23 16:00] VITALS: BP 118/70; PULSE 78; RESP 16; TEMP 36.7; O2SAT 98
[2024-07-23 17:15] VITALS: BP 118/84; PULSE 78; RESP 16; TEMP 36.7; O2SAT 99
== END 2024-07-23 17:16 | disposition home or self-care (01) | DRG 807 ==
LOC: OPOB 12:32 → OBGYN 12:32
PROVIDERS: Admitting Provider Family Medicine; PCP Nurse Practitioner; Visit Provider Family Medicine
DX: O69.81X0 Labor and delivery complicated by cord around neck, without compression, not applicable or unspecified (principal); Z37.0 Single live birth; O70.1 Second degree perineal laceration during delivery; Z3A.39 39 weeks gestation of pregnancy
CPT/HCPCS: 36415; 51702; 59025; 59409; 83986; 85025; 85027; 86850; 86900; 99211; J1100; J2590; J2795; J3490; J7030; J7120; J7121; J9999

== ENCOUNTER 2024-10-07 06:56 | Day surgery (SDC) | payer BC, SELFPAY ==
[2024-10-07] VITALS (10 sets, daily range): BP systolic 93–118; BP diastolic 49–73; PULSE 49–76; RESP 11–18; TEMP 36.1–36.6; O2SAT 93–99; BMI 29.0
--- NOTE | 2024-10-07 00:55 | W.PM.OPSFHP ---
Same Day Surgery H&P Indication for Procedure/HPI DATE OF PROCEDURE: October 07, 2024 CHIEF COMPLAINT/INDICATIONFOR SURGICAL PROCEDURE: Desires permanent sterilization PREOP DIAGNOSIS: Desires permanent sterilization PLANNED PROCEDURE: Operation Date: 10/07/24 09:30 Proposed Procedures p BILATERAL Laparoscopic Salpingectomy 50325 Z30.2(Bilateral) - Yasir Farnsworth MD 33 y.o. A2 Desires permanent sterilization Medications/Allergies* Home Medications ?Medication ?Instructions ?Recorded ?Confirmed ?Type ascorbate calcium (vitamin C) 500 500 mg PO DAILY 09/03/24 10/06/24 History mg tablet multivitamin (One-A-Day Essential 1 tab PO DAILY 09/03/24 10/06/24 History tablet) Allergies/Adverse Reactions Allergy/AdvReac Type Severity Reaction Status Date / Time Penicillins Allergy ADR-Diarrhe Verified 09/03/24 11:17 a hydrocodone AdvReac Mild ADR-Dizzine Verified 09/03/24 11:17 ss oxycodone AdvReac Mild ADR-Dizzine Verified 09/03/24 11:17 ss Pertinent History/Comorbid Conditions* Medical History (Updated 07/24/24 @ 00:00 by DALE Bird) Spontaneous vaginal delivery Term No pertinent past medical history neghx: htn, dm,thyroid,dvt/pe PCP: bre leos Surgical History (Updated 09/28/22 @ 14:48 by Jacque Doss APN, WHBETH) (~2006) surgical EAB H/O knee surgery 03/2021, 05/2021, 11/2021, 02/2022, 08/2022 H/O eye surgery (~2014) H/O wisdom tooth extraction H/O breast biopsy Left breast-- benign possible fibroadenoma Family History (Updated 09/28/22 @ 14:16 by Adele Titus LPN) Breast cancer Mother dx'd around age 50 Denies family history of Colon cancer Ovarian cancer Diabetes Heart disease Hyperlipidemia Hypertension Uterine cancer Thyroid disease Stroke Social History Smoking and tobacco/nicotine status: never used tobacco/nicotine Pertinent Exam Findings alert, oriented x 3, clear to auscultation bilaterally and regular rate & rhythm Recommendations Surgery/Procedure today Coding Level of Care Code Acute Code for Chg Fwd
[2024-10-07] MEDS: scopolamine 1 mg PATCH 1 PATCH TRANSDERMA (07:31)
[2024-10-07] MEDS: sodium chloride 0.9% 1,000 ML 30 ML IV (07:32)
[2024-10-07 07:40] LABS: OR HCG Qualitative Urine Negative (Negative)
--- NOTE | 2024-10-07 08:34 | ANES.PREANE2 ---
Pre-Anesthetic Assessment Height/Weight: Height 1.68 m Weight 81.647 kg Temp Pulse Resp BP Pulse Ox O2 Del Method 97.8 F 71 18 118/73 97 Room Air 10/07/24 07:16 10/07/24 07:16 10/07/24 07:16 10/07/24 07:16 10/07/24 07:16 10/07/24 07:16 Preop Diagnosis: Desires permanent sterilization Operation Date: 10/07/24 09:30 Proposed Procedures p BILATERAL Laparoscopic Salpingectomy 30662 Z30.2(Bilateral) - Yasir Farnsworth MD Familial anesthetic complications: None Was Beta Baljit taken within 24 hours: N/A Was Clonidine taken within 24 hours: N/A Last intake: Intake Last Liquid Date 10/06/24 Last Liquid Time 22:00 Last Solid Date 10/06/24 Last Solid Time 22:00 Social No alcohol and No tobacco Exam alert, oriented x 3, clear to auscultation bilaterally and regular rate & rhythm Airway Mallampati: Class I Dentition: full Anesthetic Plan ASA status: 1 Anesthesia: General Risk of > 500 ml blood loss (7ml/kg in children): No Medications/Allergies Home Medications ?Medication ?Instructions ?Recorded ?Confirmed ?Last Taken ?Type ascorbate calcium (vitamin C) 500 500 mg PO DAILY 09/03/24 10/06/24 10/06/24 History mg tablet multivitamin (One-A-Day Essential 1 tab PO DAILY 09/03/24 10/06/24 10/06/24 History tablet) Allergies Allergy/AdvReac Type Severity Reaction Status Date / Time Penicillins Allergy ADR-Diarrhe Verified 10/07/24 07:15 a hydrocodone AdvReac Mild ADR-Dizzine Verified 10/07/24 07:15 ss oxycodone AdvReac Mild ADR-Dizzine Verified 10/07/24 07:15 ss Current Medications Generic Name Dose Route Start Last Admin Trade Name Freq PRN Reason Stop Dose Admin Sodium Chloride 1,000 mls @ 30 mls/hr 10/07/24 07:15 10/07/24 07:32 Sodium Chloride 0.9% IV 10/08/24 07:14 30 mls/hr .Q24H SHAWN Administration PFSH Anesthesia Medical History Spontaneous vaginal delivery Term No pertinent past medical history neghx: htn, dm,thyroid,dvt/pe PCP: bre leos Surgical History (~2006) surgical EAB H/O knee surgery 03/2021, 05/2021, 11/2021, 02/2022, 08/2022 H/O eye surgery (~2014) H/O wisdom tooth extraction H/O breast biopsy Left breast-- benign possible fibroadenoma Family History Mother Breast cancer dx'd around age 50 Denies family history of Colon cancer Ovarian cancer Diabetes Heart disease Hyperlipidemia Hypertension Uterine cancer Thyroid disease Stroke Social History Smoking and tobacco/nicotine status: never used tobacco/nicotine
--- NOTE | 2024-10-07 09:06 | W.PM.OPSUD ---
Surgery/Procedure H&P Update DATE OF PROCEDURE: October 07, 2024 DATE H&P PERFORMED: 10/07/24 H&P UPDATE INFORMATION: I have reviewed H&P completed within last 30 days, I have examined patient prior to procedure and No changes to prior documentation PREOP DIAGNOSIS: Desires permanent sterilization PLANNED PROCEDURE: Operation Date: 10/07/24 09:30 Proposed Procedures p BILATERAL Laparoscopic Salpingectomy 97736 Z30.2(Bilateral) - Yasir Farnsworth MD
--- NOTE | 2024-10-07 11:50 | P.OP_ITS ---
Operative Report Date of procedure: October 07, 2024 Pre-op diagnosis: desires permanent sterilization Post-op diagnosis: same Post-op findings: normal uterus, tubes, and ovaries Procedure done: laparoscopic bilateral salpingectomy Implants: none Specimens removed/disposition: bilateral fallopian tube segments Surgeon: Yasir Farnsworth MD Anesthesia: General Estimated blood loss (mL): 5 Complications: none Findings: normal uterus, tubes, and ovaries Condition: stable Disposition: PACU Brief History: 33 y.o. desires permanent sterilization Procedure: Informed consent was obtained. The patient was taken to the OR and placed on the table. General endotracheal anesthesia was induced. The abdomen was then prepped and draped in the usual fashion. A 5 mm subumbilical skin incision was made. A 5 mm trocar with sheath was then inserted into the peritoneal cavity under direct visualization with the laparoscope. After confirming intraperitoneal position, pneumoperitoneum was achieved. Two separate 5 mm incisions were made in the right and left mid- quadrants. 5 mm trocars with sheaths were then inserted into the peritoneal cavity under direct visualization with the laparoscope. The right fallopian tube was then identified to its fimbrial end. Starting at the fimbrial end, the mesosalpinx was then coagulated and cut using the Ligasure. The right fallopian tube was excised and removed via one of the ports. This was sent to pathology. There was no bleeding seen. Similarly, the left fallopian tube was identified to its fimbrial end. The left fallopian tube was excised and removed, sent to pathology. There was no bleeding. All instruments were then removed from the peritoneal cavity after the p neumoperitoneum was allowed to escape. The skin incisions were closed using 3-O chromic in subcuticular fashion. Dermabond was applied. The patient was then placed supine and awakened, taken the the PACU in good condition. Postop condition: stable EBL: 5 cc Complications: none Sponge, needles, and instruments counts correct x two
--- NOTE | 2024-10-07 12:11 | ANE.PACU2 ---
Inpatient post-anesthesia follow up: Airway intact: Yes Vital signs: Temperature 97 F Pulse Rate 56 Respiratory Rate 16 Blood Pressure 101/57 Pulse Oximetry 94 Oxygen Delivery Me thod Room Air Oxygen Flow Rate 8 Fraction of Inspir ed Oxygen Hydration adequate: Yes Nausea and vomiting: No Pain level: 1 Mental status: Baseline
== END 2024-10-07 11:40 | disposition home or self-care (01) ==
PROVIDERS: Anesthesiology; PCP Nurse Practitioner; Visit Provider Obstetrics & Gynecology
PROC: (CPT 58661; principal; 2024-10-07 09:20)
DX: Z30.2 Encounter for sterilization (principal); Z88.5 Allergy status to narcotic agent; Z88.0 Allergy status to penicillin
CPT/HCPCS: 58661; 81025; 88302; A4216; J0131; J1100; J1200; J1885; J2250; J2405; J2704; J2710; J3010; J3490; J7030; J9999

== ENCOUNTER 2025-02-13 09:22 | Outpatient (CLI) | payer OTHER, BC, SELFPAY ==
--- NOTE | 2025-02-13 09:34 | MR_ITS ---
WS: [id number] MRI RIGHT KNEE NONCONTRAST TECHNIQUE: Axial PD, coronal PD fat sat, coronal PD, sagittal PD, and sagittal PD fat-sat images obtained. CLINICAL INFORMATION: PAIN IN THE RT KNEE. History of prior knee surgeries. FINDINGS: Distal quadriceps and patella tendons are intact. Hypertrophic patella. Moderate grade 2 chondromalacia patella. No subchondral edema. Medial and lateral patellar retinaculum appear intact. Lobulated popliteal cyst measuring 3.1 x 2.7 cm. Additional satellite cyst extending along the dorsal femoral condyle measuring 2.8 x 0.9 cm. ACL and PCL appear intact. Medial and lateral collateral ligaments appear intact. Normal popliteus. Fibular head appears normal. Medial and lateral meniscus appear intact. Mild chronic thinning. Grade II chondromalacia medial and lateral joint compartments. No acute appearing meniscal tears. MR/MR knee RT wo con* [id number] IMPRESSION: 1. ACL and PCL appear intact. 2. No acute appearing meniscal tears. 3. Grade II chondromalacia medial and lateral joint compartments 4. Normal medial and lateral collateral ligaments. 5. Moderate chondromalacia patella. No subchondral edema. Hypertrophic patella . 6. Lobulated popliteal cyst measuring 3.1 x 2.7 cm. Adjacent satellite cyst co mponent extending along the dorsal femoral condyle measuring 2.8 x 0.9 cm. Outbridge grading: grade II: blister-like swelling/fraying of articular cartila ge extending to surface
--- NOTE | 2025-02-13 09:37 | MR_ITS ---
WS: [id number] MRI LEFT KNEE NONCONTRAST TECHNIQUE: Axial PD, coronal PD fat sat, coronal PD, sagittal PD, and sagittal PD fat-sat images obtained. CLINICAL INFORMATION: old injury fall COMPARISON: None. FINDINGS: Distal quadriceps and patella tendons are intact. Hypertrophic patella. Normal ACL and PCL. Chronic thinning of the medial and lateral meniscus. No acute appearing meniscal tears. Grade 3 chondromalacia in the medial and lateral joint compartments. Small focus of subchondral edema in the lateral femoral condyle and medial tibial plateau. Grade III chondromalacia patella. No subchondral edema. Medial and lateral patellar retinaculum appear intact. Normal popliteal fossa. Fibular head appears normal. Normal medial and lateral collateral ligaments MR/MR knee LT wo con* [id number] IMPRESSION: 1. ACL and PCL appear intact. 2. Chronic thinning of the medial lateral meniscus. No acute appearing menisca l tears. 3. Grade III chondromalacia patella. 4. Grade III chondromalacia involving the medial and lateral joint compartment s. Small foci of subchondral edema involving the lateral femoral condyle and me dial tibial plateau. 5. No other acute findings. Outbridge grading: grade III: partial-thickness cartilage loss with focal ulcer ation
== END 2025-02-13 09:23 | disposition home or self-care (01) ==
LOC: RAD 09:25
PROVIDERS: PCP Nurse Practitioner; Visit Provider Orthopaedic Surgery
DX: M25.561 Pain in right knee (principal); M25.562 Pain in left knee; M22.42 Chondromalacia patellae, left knee; M22.41 Chondromalacia patellae, right knee; M71.21 Synovial cyst of popliteal space [Baker], right knee
CPT/HCPCS: 73721